=== PATIENT | female | born 1985 | race African-American/Black ===

== ENCOUNTER → 2017-10-22 | Outpatient (CLI) | payer SELFPAY | END | disposition home or self-care (01) | LOC: EDBD 10:00 → RAD 10:00 | DX: Z3A.36 36 weeks gestation of pregnancy (principal); Z84.89 Family history of other specified conditions | CPT/HCPCS: 76805; 76818 ==

== ENCOUNTER → 2017-11-11 | Outpatient (CLI) | payer SELFPAY | END | disposition home or self-care (01) | LOC: RAD 10:00 | DX: Z3A.38 38 weeks gestation of pregnancy (principal); O09.90 Supervision of high risk pregnancy, unspecified, unspecified trimester; L93.0 Discoid lupus erythematosus | CPT/HCPCS: 76818 ==

== ENCOUNTER 2017-11-20 20:11 | Inpatient (IN) | payer SELFPAY ==
[~2017-11-20] VITALS: Ht 167.6 cm; Wt 83.6 kg
[2017-11-20 20:23] VITALS: BP 116/71
[2017-11-20 21:38] LABS: BASOPHIL (%) 0.2 % (0-1); EOSINOPHIL COUNT 0.1 K/uL (0-0.3); HEMATOCRIT 33.3 % (36.0-46.0); HEMOGLOBIN 11.2 G/DL (11.9-15.5); IMMATURE GRANULOCYTE (%) 0.8 % (0.0-0.7); LYMPHOCYTE (%) 27.2 % (15-42); LYMPHOCYTE COUNT 1.4 K/uL (1.0-2.8); MCH 31.6 PG (29.0-34.0); MCHC 33.6 G/DL (30.0-36.0); MCV 94.1 FL (83-99); MONOCYTE (%) 12.6 % (3-12); MONOCYTE COUNT 0.7 K/uL (0-0.8); NEUTROPHIL (%) 58.2 % (45-76); NEUTROPHIL COUNT 3.1 K/uL (1.8-6.4); PLATELET COUNT 234 K/uL (156-360); RBC DIS.WIDTH-CV 14.6 % (11.8-14.6); RBC DIS.WIDTH-SD 50.8 % (39-53); RED BLOOD COUNT 3.54 M/uL (3.80-5.20); WHITE BLOOD COUNT 5.3 K/uL (4.1-10.2)
[2017-11-21] VITALS (41 sets, daily range): BP systolic 100–136; BP diastolic 55–81
[2017-11-22] VITALS (10 sets, daily range): BP systolic 116–149; BP diastolic 59–88
[2017-11-23 04:00] VITALS: BP 118/56
[2017-11-23 06:37] LABS: BASOPHIL (%) 0.4 % (0-1); BASOPHIL COUNT 0.1 K/uL (0-0.1); EOSINOPHIL (%) 2.5 % (0-5); EOSINOPHIL COUNT 0.4 K/uL (0-0.3); HEMATOCRIT 27.1 % (36.0-46.0); IMMATURE GRANULOCYTE (%) 0.5 % (0.0-0.7); LYMPHOCYTE (%) 12.7 % (15-42); LYMPHOCYTE COUNT 1.9 K/uL (1.0-2.8); MCH 32.5 PG (29.0-34.0); MCHC 33.2 G/DL (30.0-36.0); MCV 97.8 FL (83-99); MONOCYTE (%) 6.5 % (3-12); NEUTROPHIL (%) 77.4 % (45-76); NEUTROPHIL COUNT 11.2 K/uL (1.8-6.4); PLATELET COUNT 185 K/uL (156-360); RBC DIS.WIDTH-SD 54.1 % (39-53); WHITE BLOOD COUNT 14.5 K/uL (4.1-10.2)
[2017-11-23 06:38] LABS: RED BLOOD COUNT 2.77 M/uL (3.80-5.20)
[2017-11-24 23:00] VITALS: BP 122/69
[2017-11-25 07:33] VITALS: BP 132/76
[2017-11-25] MEDS ORDERED: IBUPROFEN800 MG PO (08:49)
[2017-11-25] MEDS ORDERED: BACITRACIN28.4 GM TP (08:49)
[2017-11-25] MEDS ORDERED: FERROUS SULFAT325 MG PO (08:49)
[2017-11-25] MEDS ORDERED: ENDOCET 5-3251 EACH PO (08:49)
== END 2017-11-25 14:24 | disposition home or self-care (01) | DRG 765 ==
LOC: LDRP-OP 20:11 → 2WEST 20:13 → LDRP-OP 11-21 14:33 → 2WEST 11-22 02:23 → LDRP-OP 12-22 16:32
PROVIDERS: Advanced Practice Midwife; Obstetrics & Gynecology
DX: O33.9 Maternal care for disproportion, unspecified (principal); D62 Acute posthemorrhagic anemia; O40.3XX0 Polyhydramnios, third trimester, not applicable or unspecified; O62.2 Other uterine inertia; E66.9 Obesity, unspecified; O99.02 Anemia complicating childbirth; O99.214 Obesity complicating childbirth; Z68.30 Body mass index [BMI] 30.0-30.9, adult; O34.13 Maternal care for benign tumor of corpus uteri, third trimester; D25.9 Leiomyoma of uterus, unspecified; M32.9 Systemic lupus erythematosus, unspecified; O76 Abnormality in fetal heart rate and rhythm complicating labor and delivery; D50.9 Iron deficiency anemia, unspecified; O69.81X0 Labor and delivery complicated by cord around neck, without compression, not applicable or unspecified; O99.89 Other specified diseases and conditions complicating pregnancy, childbirth and the puerperium; Z37.0 Single live birth; Z3A.40 40 weeks gestation of pregnancy; O75.2 Pyrexia during labor, not elsewhere classified
CPT/HCPCS: 85025; 86850; 86900; 86901; 88307; 90686; C1755; G0378; J0456; J0690; J1885; J2250; J2274; J2590; J3010; J7120